=== PATIENT | male | born 1995 | race Caucasian/White ===

== ENCOUNTER 2019-09-22 10:46 | Inpatient (IN) | payer MEDICAID ==
[~2019-09-22] VITALS: Ht 188 cm; Wt 76.0 kg
[2019-09-22] MEDS ORDERED: SERT100T12 PO (17:22)
[2019-09-22 17:29] VITALS: BP 129/76
[2019-09-22] MEDS: LORazepam 2 MG TABLET PO PRN (18:11)
[2019-09-22 18:30] VITALS: BP 126/78
[2019-09-22] MEDS ORDERED: IBUPROFEN 600 MG TABLET PO PRN (18:30)
[2019-09-22] MEDS ORDERED: CloNIDine HCL 0.1 MG TABLET PO PRN (18:30)
[2019-09-22] MEDS ORDERED: BACITRACIN 28.4 GM OINTMENT TP PRN (18:30)
[2019-09-22] MEDS ORDERED: MAGNESIUM HYDROXIDE SUSPENSION 30 ML UDCUP PO PRN (18:30)
[2019-09-22] MEDS ORDERED: LOPERAMIDE HCL 2 MG CAPSULE PO PRN (18:30)
[2019-09-22] MEDS ORDERED: ONDANSETRON HCL 4 MG TABLET PO PRN (18:30)
[2019-09-22] MEDS ORDERED: ALBUTEROL SULFATE HFA 90 MCG/PUFF 8 GM INHALER IH PRN (18:30)
[2019-09-22] MEDS ORDERED: ACETAMINOPHEN 325 MG TABLET PO PRN (18:30)
[2019-09-22] MEDS ORDERED: PETROLATUM,WHITE 28 GM JELLY TP PRN (18:30)
[2019-09-22] MEDS ORDERED: MAG HYDROX/AL HYDROX/SIMETH ES 30 ML SUSPENSION UDCUP PO PRN (18:30)
[2019-09-22] MEDS ORDERED: BENZOCAINE/MENTHOL LOZENGE MM PRN (18:30)
[2019-09-22] MEDS ORDERED: PNEUMOCOCCAL VACCINE POLYVALENT 0.5 ML VIAL [PPSV23] IM ONE (19:45)
[2019-09-22] MEDS: ZOLPIDEM TARTRATE 10 MG TABLET PO PRN (22:26)
[2019-09-23 05:16] VITALS: BP 104/72
[2019-09-23 08:19] VITALS: BP 100/52
[2019-09-23 08:58] LABS: BASOPHILS % (AUTO) 0.5 % (0.0-2.0); EOSINOPHILS % (AUTO) 5.6 % (1.0-6.0); HEMOGLOBIN 14.4 g/dL (13.5-17.5); LYMPHOCYTES % (AUTO) 42.4 % (22.0-44.0); MEAN CORPUSCULAR HEMOGLOBIN 30.2 pg (26.0-34.0); MEAN CORPUSCULAR HGB CONC 33.5 G/dL (31.0-37.0); MEAN CORPUSCULAR VOLUME 90 fL (80-100); MONOCYTES # (AUTO) 0.3 K/uL (0.1-1.0); MONOCYTES % (AUTO) 6.6 % (2.0-9.0); NEUTROPHILS # (AUTO) 2.2 K/uL (1.8-7.7); NEUTROPHILS % (AUTO) 44.9 % (40.0-70.0); PLATELET COUNT (AUTO) 190 K/uL (150-450); RED BLOOD CELL COUNT(AUTO) 4.77 MIL/uL (4.50-5.90); RED CELL DISTRIBUTION WIDTH 13.4 % (11.5-14.5)
[2019-09-23] MEDS: DOCUSATE SODIUM 100 MG CAPSULE PO SCH (08:59)
[2019-09-23] MEDS: OMEPRAZOLE 20 MG CAPSULE PO SCH (08:59)
[2019-09-23 09:33] LABS: AMPHET/METH SCREEN,URINE NEGATIVE (NEGATIVE); BARBITURATE SCREEN, URINE NEGATIVE (NEGATIVE); BENZODIAZEPINES SCREEN,URINE NEGATIVE (NEGATIVE); CANNABINOID SCREEN,URINE POSITIVE (NEGATIVE); COCAINE SCREEN,URINE NEGATIVE (NEGATIVE); METHADONE SCREEN, URINE NEGATIVE (NEGATIVE); OPIATE SCREEN,URINE NEGATIVE (NEGATIVE)
[2019-09-23 09:37] LABS: APPEARANCE,URINE CLEAR (CLEAR); BILIRUBIN,URINE NEGATIVE (NEGATIVE); GLUCOSE, URINE (UA) NEGATIVE (NEGATIVE); KETONES,URINE NEGATIVE (NEGATIVE); LEUKOCYTE ESTERASE ,URINE NEGATIVE (NEGATIVE); NITRATE,URINE NEGATIVE (NEGATIVE); OCCULT BLOOD,URINE NEGATIVE (NEGATIVE); PH,URINE 7.5 (5.0-8.0); PROTEIN,URINE NEGATIVE (NEGATIVE)
[2019-09-23 09:44] LABS: ALANINE AMINOTRANSFERASE 32 U/L (12-78); ALBUMIN 4.1 g/dL (3.4-5.0); ALKALINE PHOSPHATASE 39 U/L (46-116); ANION GAP 5 mmol/L (8-16); ASPARTATE AMINOTRANSFERASE 35 U/L (15-37); BILIRUBIN,TOTAL 0.9 mg/dL (0.1-1.0); CALCIUM, TOTAL 9.1 mg/dL (8.8-10.5); CARBON DIOXIDE 29 mmol/L (22-29); CHLORIDE 100 mmol/L (98-107); CHOL/HDL RATIO 2.4 (4.2-7.3); CHOLESTEROL 123 mg/dL (131-200); CREATININE 0.85 mg/dL (0.60-1.30); FREE T4 (FREE THYROXINE) 1.27 ng/dL (0.76-1.46); GLOMERULAR FILTR. RATE CALC > 60 mL/min (>60); GLUCOSE,RANDOM 77 mg/dL (70-110); HDL CHOLESTEROL 51 mg/dL (40-60); LDL CHOL (CALC.) 60 mg/dL (0-130); POTASSIUM 3.9 mmol/L (3.5-5.1); SODIUM SERUM 134 mmol/L (136-145); THYROID STIMULATING HORMONE 1.12 uIU/mL (0.36-3.74); TOTAL PROTEIN, SERUM 7.4 g/dL (6.4-8.2); TRIGLYCERIDES 60 mg/dL (15-150); UREA NITROGEN, BLOOD 10 mg/dL (7-18)
[2019-09-23 09:52] LABS: PHENCYCLIDINE SCREEN,URINE NEGATIVE (NEGATIVE)
[2019-09-23 12:06] VITALS: BP 120/69
[2019-09-23] MEDS: LORazepam 2 MG TABLET PO PRN (12:06)
[2019-09-23 16:45] VITALS: BP 100/73
[2019-09-23] MEDS: HALOPERIDOL 5 MG TABLET PO PRN (18:22)
[2019-09-23] MEDS: SERTRALINE HCL 100 MG TABLET PO SCH (20:07)
[2019-09-23] MEDS: ZOLPIDEM TARTRATE 10 MG TABLET PO PRN (23:17)
[2019-09-24] MEDS: LORazepam 2 MG TABLET PO PRN ×3 (04:28→16:34)
[2019-09-24 05:21] VITALS: BP 110/75
[2019-09-24] MEDS: OMEPRAZOLE 20 MG CAPSULE PO SCH (09:05)
[2019-09-24] MEDS: DOCUSATE SODIUM 100 MG CAPSULE PO SCH (09:05)
[2019-09-24 12:34] VITALS: BP 113/81
[2019-09-24 16:21] VITALS: BP 114/60
[2019-09-24] MEDS: HALOPERIDOL 5 MG TABLET PO PRN (16:34)
[2019-09-24] MEDS: SERTRALINE HCL 100 MG TABLET PO SCH (20:31)
[2019-09-24] MEDS: ZOLPIDEM TARTRATE 10 MG TABLET PO PRN (20:31)
[2019-09-25 05:00] VITALS: BP 109/76
[2019-09-25] MEDS: LORazepam 2 MG TABLET PO PRN ×3 (05:00→19:42)
[2019-09-25 08:03] VITALS: BP 113/61
[2019-09-25] MEDS: DOCUSATE SODIUM 100 MG CAPSULE PO SCH (08:21)
[2019-09-25] MEDS: OMEPRAZOLE 20 MG CAPSULE PO SCH (08:21)
[2019-09-25] MEDS: HALOPERIDOL 5 MG TABLET PO PRN ×2 (10:46→19:42)
[2019-09-25 18:39] VITALS: BP 113/78
[2019-09-25] MEDS ORDERED: OMEP20 PO (19:32)
[2019-09-25] MEDS: ZOLPIDEM TARTRATE 10 MG TABLET PO PRN (21:23)
[2019-09-26 03:05] VITALS: BP 106/68
[2019-09-26] MEDS: LORazepam 2 MG TABLET PO PRN ×3 (03:06→20:38)
[2019-09-26 08:19] VITALS: BP 100/65
[2019-09-26] MEDS: DOCUSATE SODIUM 100 MG CAPSULE PO SCH (08:34)
[2019-09-26] MEDS: OMEPRAZOLE 20 MG CAPSULE PO SCH (08:36)
[2019-09-26] MEDS ORDERED: SERTRALINE HCL 100 MG TABLET PO SCH (09:00)
[2019-09-26 10:30] VITALS: BP 117/80
[2019-09-26] MEDS: HALOPERIDOL 5 MG TABLET PO PRN ×2 (10:31→20:39)
[2019-09-26] MEDS: CITALOPRAM HYDROBROMIDE 20 MG TABLET PO SCH (10:53)
[2019-09-26 16:29] VITALS: BP_SYST 100; BP_SYST 128; BP_DIAS 65; BP_DIAS 81
[2019-09-26] MEDS: ZOLPIDEM TARTRATE 10 MG TABLET PO PRN (20:39)
[2019-09-27 04:58] VITALS: BP 102/60
[2019-09-27] MEDS: LORazepam 2 MG TABLET PO PRN (06:22)
[2019-09-27 08:22] VITALS: BP 103/50
[2019-09-27] MEDS: CITALOPRAM HYDROBROMIDE 20 MG TABLET PO SCH (08:39)
[2019-09-27] MEDS: DOCUSATE SODIUM 100 MG CAPSULE PO SCH (08:40)
[2019-09-27] MEDS: OMEPRAZOLE 20 MG CAPSULE PO SCH (08:40)
[2019-09-27] MEDS ORDERED: CITA10TA68 PO (11:42)
== END 2019-09-27 13:36 | disposition home or self-care (01) | DRG 751 ==
LOC: B3A 17:07
PROVIDERS: ADMIT Psychiatry & Neurology Psychiatry; ATTEND Psychiatry & Neurology Psychiatry
DX: F33.2 Major depressive disorder, recurrent severe without psychotic features (principal); E87.1 Hypo-osmolality and hyponatremia; R45.851 Suicidal ideations; J45.909 Unspecified asthma, uncomplicated; F41.9 Anxiety disorder, unspecified; F10.10 Alcohol abuse, uncomplicated; I10 Essential (primary) hypertension; Z79.899 Other long term (current) drug therapy
CPT/HCPCS: 80307; 84436; 84439; 84443; 87081; 90732; G0480